=== PATIENT | female | born 1965 | race Caucasian/White ===

== ENCOUNTER 2017-01-13 06:48 | Emergency (ER) | payer SELFPAY ==
[2017-01-13 06:55] VITALS: BP 151/109
[2017-01-13] MEDS ORDERED: NALBUPHINE HCL 20 MG/ML AMPUL IV ONE (07:11)
[2017-01-13] MEDS ORDERED: ONDANSETRON HCL/PF 2 MG/ML VIAL IV ONE (07:11)
[2017-01-13] MEDS ORDERED: ONDANSETRON HCL/PF 2 MG/ML VIAL ONE (07:12)
[2017-01-13] MEDS ORDERED: NALBUPHINE HCL 20 MG/ML AMPUL ONE (07:13)
--- NOTE | 2017-01-13 07:14 | ERNOTE ---
ENT HPI Presenting Symptoms: dental pain Time Seen by Provider: 01/13/17 06:57 Source: patient, family Exam Limitations: no limitations - Immun/Allergies/Home Medications Immunizations: IMMUNIZATION HX Immunizations Up to Date Yes History of Influenza Vaccine No Hx Pneumococcal Vaccination No Allergies/Adverse Reactions: Allergies Allergy/AdvReac Type Severity Reaction Status Date / Time ketorolac tromethamine Allergy Verified 01/13/17 06:55 [From Toradol] Penicillins Allergy rash Verified 01/13/17 06:55 Home Medications: HOME MEDICATIONS Cefdinir 300 mg PO BID #14 capsule 01/13/17 [Last Taken Unknown] traMADol HCL [Ultram] 50 - 100 mg PO QID PRN #20 tab 01/13/17 [Last Taken Unknown] - History of Present Illness Narrative: Pt states she has had a broken tooth on the right lower for some time but it wasn't bothering her until today when she found her jaw swollen and pain increased Severity: Present: moderate ENT Location: Present: dental Prearrival Treatment: Present: over the counter meds Modifying Factors - Improves: Reports: nothing Associated Symptoms - ENT: Reports: facial pain/swelling, jaw swelling. Denies : fever Review of Systems - Review of Systems Constitutional: Absent: recent illness, fever EYE: Present: no symptoms reported ENT: Present: See HPI Respiratory: Absent: shortness of breath Cardiology: Absent: chest pain Gastrointestinal/Abdominal: Absent: nausea Genitourinary: Present: no symptoms reported Musculoskeletal: Present: no symptoms reported Skin: Absent: change in color Neurological: Present: numbness, tingling - of her lower lip on the right 2-3 days ago Endocrine: Present: no symptoms reported Hematologic/Lymphatic: Present: no symptoms reported Psych: Present: no symptoms reported - Patient's Past Medical History Patient History - Medical: No pertinent hx Patient History - Cardiac/Respiratory: Asthma Patient History - Cancer: No Hx of Cancer Patient History - Surgical Procedures: Hysterectomy Patient History - Other: None - Social History Living Situations: home Abuse History: No History of abuse Psych History: No pertinent hx Smoking Status: Former smoker Have you smoked in the past 12 months: No Alcohol Use: none Drug Use: none - Immunizations Immunizations Up to Date: Yes Hx Pneumococcal Vaccination: No History of Influenza Vaccine: No Physical Exam - Physical Exam General Appearance: Present: wd/wn, alert, no apparent distress Head Exam: Present: no evidence of injury Ears, Nose, Throat: Present: other - swelling of right jaw, right 2nd lower molar is only molar in the right jaw and is fractured, no erythema around the tooth Neck: Present: normal inspection, nontender Respiratory: Present: no respiratory distress, no accessory muscle use Back Exam: Present: normal inspection, normal range of motion, no vertebral tenderness Extremity Exam: Present: normal inspection, normal range of motion, no edema Neurological Exam: Present: alert, oriented, normal mood/affect Skin Exam: Present: normal color, warm/dry Lymphatic Exam: Present: no adenopathy ED Progress - Vital Signs Vital Signs: Vital Signs 01/13/17 06:52 Temperature 37.3 C Pulse Rate 88 Respiratory 16 Rate Blood Pressure 151/109 O2 Sat by Pulse 98 Oximetry - Progress/Reassessment Chief Complaint: Dental Problem Departure Clinical Impression: Dental infection - Departure Disposition: Home Follow Up Needed Condition: Good Instructions: Dental Abscess, [id number] Additional Instructions: See a dentist as soon as possible. Prescriptions: Cefdinir 300 mg PO BID #14 capsule traMADol HCL [Ultram] 50 - 100 mg PO QID PRN #20 tab PRN Reason: Pain
== END 2017-01-13 08:10 | disposition home or self-care (01) ==
LOC: ER 06:48
DX: K04.7 Periapical abscess without sinus (principal); Z87.891 Personal history of nicotine dependence
CPT/HCPCS: 96365; 96375; 99284; J2405